=== PATIENT | female | born 1995 | race Caucasian/White ===

== ENCOUNTER 2023-05-09 20:58 | Observation (INO) | payer OTHER ==
[~2023-05-09] VITALS: Ht 170.2 cm; Wt 82.6 kg
[2023-05-09 21:40] VITALS: BP 100/65; PULSE 91; RESP 17; TEMP 98.4
[2023-05-09] MEDS ORDERED: diphenhydrAMINE 50 MG/ML VIAL IVP ONE ×2 (22:10→22:45)
[2023-05-09] MEDS ORDERED: METOCLOPRAMIDE 10 MG/2 ML INJ VIAL IVP PRN (22:10)
[2023-05-09] MEDS ORDERED: ONDANSETRON 4 MG/2 ML VIAL IVP PRN (22:10)
[2023-05-09] MEDS: LACTATED RINGERS 1,000 ML IV SCH (23:17)
[2023-05-10] MEDS: LACTATED RINGERS 1,000 ML IV SCH (01:00)
== END 2023-05-10 09:37 | disposition home or self-care (01) ==
LOC: MLD 20:58
PROVIDERS: ADMIT Obstetrics & Gynecology; ATTEND Obstetrics & Gynecology
DX: O21.0 Mild hyperemesis gravidarum (principal); Z20.822 Contact with and (suspected) exposure to COVID-19; O99.612 Diseases of the digestive system complicating pregnancy, second trimester; K21.9 Gastro-esophageal reflux disease without esophagitis; Z3A.18 18 weeks gestation of pregnancy
CPT/HCPCS: 81000; 87426; 96361; 96374; 96375; G0378; G0379; J1200; J2405; J2765; C8929

== ENCOUNTER 2023-08-19 17:22 | Observation (INO) | payer OTHER ==
[~2023-08-19] VITALS: Ht 172.7 cm; Wt 84.4 kg
[2023-08-19] MEDS ORDERED: PRETAB PO (17:53)
[2023-08-19 17:55] VITALS: BP 98/65; PULSE 100; RESP 18; TEMP 98.7
[2023-08-19] MEDS: FLUCONAZOLE 100 MG TAB PO ONE (19:40)
[2023-08-19] MEDS ORDERED: FLUCONAZOLE 100 MG TAB PO ONE (20:00)
== END 2023-08-19 19:55 | disposition home or self-care (01) ==
LOC: MLD 17:22
PROVIDERS: ADMIT Obstetrics & Gynecology; ATTEND Obstetrics & Gynecology
DX: O62.9 Abnormality of forces of labor, unspecified (principal); Z3A.33 33 weeks gestation of pregnancy; Z91.040 Latex allergy status
CPT/HCPCS: 59025; 81000; G0378; G0379

== ENCOUNTER 2023-09-30 22:43 | Inpatient (IN) | payer OTHER ==
[~2023-09-30] VITALS: Ht 172.7 cm; Wt 88.0 kg
[~2023-09-30 22:43] MED LIST: PRETAB PO
[2023-09-30 23:30] VITALS: BP 108/68; PULSE 95; RESP 18; TEMP 97.4
[2023-10-01] MEDS ORDERED: METHYLERGONOVINE 0.2 MG/ML AMP IM PRN (01:05)
[2023-10-01] MEDS ORDERED: CARBOPROST 250 MCG/ML AMP IM PRN (01:05)
[2023-10-01] MEDS ORDERED: AMPICILLIN 2,000 MG VIAL ONE (01:19)
[2023-10-01] MEDS: LACTATED RINGERS 1,000 ML IV SCH (01:34)
[2023-10-01 01:38] LABS: BASOPHILS # (AUTO) 0.1 K/uL (0.00-0.22); BASOPHILS % (AUTO) 0.6 % (0.0-2.0); EOSINOPHILS # (AUTO) 0.4 K/uL (0-0.4); EOSINOPHILS % (AUTO) 3.5 % (0.0-4.0); HEMATOCRIT 32.6 % (36-48); HEMOGLOBIN 10.9 g/dL (12.0-16.0); LYMPHOCYTES # (AUTO) 2.4 K/uL (2.5-16.5); LYMPHOCYTES % (AUTO) 23.4 % (20.5-51.1); MEAN CORPUSCULAR HEMOGLOBIN 27 pg (27-31); MEAN CORPUSCULAR HGB CONC 34 g/dL (33-37); MONOCYTES # (AUTO) 0.9 K/uL (0.8-1.0); MONOCYTES % (AUTO) 8.1 % (1.7-9.3); NEUTROPHILS # (AUTO) 6.7 K/uL (1.8-7.7); NEUTROPHILS % (AUTO) 64.4 % (42.2-75.2); PLATELET COUNT (AUTO) 187 K/uL (140-450); RED BLOOD CELL COUNT(AUTO) 4.07 MIL/uL (4.20-5.40); RED CELL DISTRIBUTION WIDTH 14.6 % (11.6-13.7); WHITE BLOOD COUNT (AUTO) 10.4 K/uL (4.8-10.8)
[2023-10-01] MEDS: AMPICILLIN 2,000 MG in NACL 0.9% MINI-BAG PLUS 100 ML IV SCH (01:41)
[2023-10-01 01:48] LABS: APPEARANCE,URINE CLEAR (CLEAR); BILIRUBIN,URINE NEGATIVE (NEGATIVE); BLOOD, URINE NEGATIVE (NEGATIVE); COLOR,URINE YELLOW (YELLOW); LEUKOCYTE ESTERASE ,URINE 1+ (NEGATIVE); NITRITE, URINE NEGATIVE (NEGATIVE); PROTEIN,URINE TRACE (NEGATIVE); UGLUCOSE NEGATIVE (NEGATIVE)
[2023-10-01 01:53] LABS: INR 0.91 (0.8-1.2); PARTIAL THROMBOPLASTIN TIME 25.3 secs (22-35.6); PROTHROMBIN TIME 9.6 secs (10.8-13.4)
[2023-10-01 01:56] LABS: ALBUMIN 2.5 g/dL (3.4-5.0); ANION GAP 10.7 (8-16); CALCIUM 8.6 mg/dL (8.5-10.1); CARBON DIOXIDE 25.1 mmol/L (21-32); CREATININE 0.7 mg/dL (0.6-1.3); POTASSIUM 3.8 mmol/L (3.5-5.1); TOTAL BILIRUBIN 0.4 mg/dL (0.0-1.0); TOTAL PROTEIN, SERUM 6.7 g/dL (6.4-8.2)
[2023-10-01 02:01] LABS: AMPHETAMINE, URINE NEGATIVE ng/ml (NEG <=1000); BARBITURATE, URINE NEGATIVE ng/ml (NEG <=200); BENZODIAZEPINE, URINE NEGATIVE ng/mL (NEG <=200); CANNABINOID, URINE NEGATIVE ng/mL (NEG <=50); COCAINE, URINE NEGATIVE ng/mL (NEG <=300); OPIATE, URINE NEGATIVE ng/mL (NEG <=2000); PHENCYCLIDINE SCREEN,URINE NEGATIVE ng/mL (NEG <=25)
[2023-10-01 02:02] LABS: RBC,URINE 0-5 /HPF (0-5)
[2023-10-01 02:03] LABS: BACTERIA,URINE 10-30 (MOD) /HPF (None Seen); MUCUS,URINE 1+ /LPF (None Seen); SQUAMOUS EPITHELIAL CELL,UR 0-3 (FEW) /LPF (0-3 (FEW))
[2023-10-01] MEDS: ONDANSETRON 4 MG/2 ML VIAL IVP PRN (04:56)
[2023-10-01 04:58] VITALS: BP 107/70; PULSE 96; RESP 20
[2023-10-01] MEDS: MORPHINE SULFATE 10 MG/ML VIAL IVP PRN (04:58)
[2023-10-01] MEDS ORDERED: AMPICILLIN 1,000 MG VIAL ONE (05:25)
[2023-10-01] MEDS: AMPICILLIN 1,000 MG in NACL 0.9% MINI-BAG PLUS 50 ML IV SCH (05:31)
[2023-10-01] MEDS ORDERED: OXYTOCIN/0.9 % SODIUM CHLORIDE 500 ML IV SCH (06:00)
[2023-10-01] MEDS ORDERED: LIDOCAINE 1% 500 MG/50 ML VIAL ONE (07:12)
[2023-10-01] MEDS ORDERED: OXYTOCIN 10 UNITS/ML VIAL IM PRN (08:30)
[2023-10-01] MEDS ORDERED: METHYLERGONOVINE 0.2 MG TAB PO PRN (08:30)
[2023-10-01] MEDS ORDERED: BENZOCAINE/MENTHOL 20%-0.5% 60 GM CAN TP PRN (08:30)
[2023-10-01] MEDS: METHYLERGONOVINE 0.2 MG/ML AMP IM PRN (09:16)
[2023-10-01] MEDS: IBUPROFEN 800 MG TAB PO PRN (21:04)
[2023-10-01] MEDS: DOCUSATE SOD/SENNA 50/8.6 MG 1 TAB PO SCH (21:05)
[2023-10-02 07:56] LABS: HEMATOCRIT 31.2 % (36-48); HEMOGLOBIN 10.4 g/dL (12.0-16.0)
== END 2023-10-03 15:30 | disposition home or self-care (01) | DRG 560 ==
LOC: MLD 22:43 → MFCC 10-01 09:50
PROVIDERS: ADMIT Obstetrics & Gynecology; ATTEND Obstetrics & Gynecology
PROC: 10E0XZZ Delivery of Products of Conception, External Approach (ICD-10-PCS; principal; 2023-10-01)
DX: O99.824 Streptococcus B carrier state complicating childbirth (principal); Z37.0 Single live birth; Z3A.39 39 weeks gestation of pregnancy
CPT/HCPCS: 36415; 59409; 80053; 80305; 81001; 85018; 85025; 85610; 85730; 86592; 86886; 86900; 86901; 87086; 90715; J0290; J2001; J2210; J2270; J2405; J2590